=== PATIENT | female | born 1975 | race Caucasian/White ===

== ENCOUNTER → 2023-09-10 | Outpatient (CLI) | payer BC ==
--- NOTE | 2023-09-10 16:45 | P.SLEEP ---
History of Present Illness DATE: 09/10/2023 CONSULTATION/NEW PATIENT EVALUATION HISTORY OF PRESENT ILLNESS/SLEEP-WAKE EVALUATION: 48-year-old lady had been evaluated in the sleep center for possible obstructive sleep apnea hypopnea syndrome. Patient is to. Patient has a history of sleep apnea diagnosed 3 years ago in another institution. Patient hadn't diagnostic sleep study in the office and then 9 treatment test which was done 2 times. Patient was treated without discernible ventilator. Then patient lost weight and repeated home sleep apnea test was negative and she was recommended to stop using Pap therapy. Then patient increased to wait again, again developed symptoms of problem sleeping during the night. Patient restarted to use sure how to several ventilator, but does not feel refreshed in the morning after using her equipment. I checked out to several ventilator. Expiratory pressure 5-15, pressure support 0-20 average pressure 14.7, expiratory pressure 12.6. Apnea- hypopnea index 0.4. SLEEP SCHEDULE: Usually sleep schedule from 10 PM to 6 AM on weekdays and until 911 AM on weekend. FALLING ASLEEP: No problems with falling asleep. DURING SLEEP: Patient sleeps on the side position with loud snoring and awakenings from sleep up to 3 times with one episode of nocturia. No history of hypnogogical hallucinations, sleep paralysis, or cataplexy. DURING THE DAY/WAKE STATE: In the morning patient wake up tired, has difficulties to pay attention, falling asleep during the day, has problems with memory, concentration and depression and anxiety. [place] sleepiness scale is significantly increased to 14. Patient takes 1 nap sometimes for many hours. PAST MEDICAL HISTORY: Hyperlipidemia, anxiety, depression none. PAST SURGICAL HISTORY: None. MEDICATIONS: Prozac, Wellbutrin. SOCIAL HISTORY: Positive for smoking 10 pack years, quit in 2007, alcohol consumption occasional. FAMILY HISTORY: Hyperlipidemia, snoring, liver problems, anemia. REVIEW OF SYSTEMS: Snoring, multiple awakenings from sleep, sleepiness during the day. No fevers. No double vision. No recent chest pain. No shortness of breath. No abdominal pain. No bleeding episodes. No blood in urine. No seizure episodes. PHYSICAL EXAMINATION: GENERAL: A pleasant patient without any distress. VITAL SIGNS: BP 152/86 , HR 67 , RR 18 , weight 178.4 pounds, height 5 foot 0 inches, body mass index 34.7 . HEENT: GINGER RODRIGUEZ. Evaluation of oropharynx showed tongue protrudes midline, low position of soft palate Mallampati 3. NECK: Supple. No JVD. Thyroid is not palpable. 14 inches in circumference. LUNGS: Clear to percussion and to auscultation. Good air exchange. No wheezing or rhonchi. HEART: S1, S2 regular. No murmurs, gallops or rubs. ABDOMEN: Soft and nontender. Bowel sounds are present. No organomegaly appreciated. EXTREMITIES: No clubbing or cyanosis. CHICKEN BONER: Awake, alert, and oriented x3. Cranial nerves 2 to 7 intact. There is no fasciculation or atrophy noted. No focal deficits observed. ASSESSMENT: 1. Snoring, multiple awakenings from sleep, small oropharyngeal air space, history of obstructive sleep apnea. Obstructive sleep apnea-hypopnea syndrome. 2. Obesity, BMI 34.7. 3. Hyperlipidemia. 4. History of anxiety. 5 history of depression. PLAN: 1. Home sleep apnea test for evaluation of patient's breathing during sleep. 2. We will get results of previous sleep studies 3. Preferable position during sleep on the side. 4. No driving if patient feels any sleepiness. Patient is aware of civil and criminal liability for unsafe driving. 5. Sleep hygiene with regular sleep time for at least 7.5-8 hours. 6. Watching weight. 7. I will see patient for follow-up visit to discuss results of home sleep apnea test and following plan. Thank you very much for referring this patient for consultation. Sincerely, Jorge Luis Aleman MD, PhD, FAASM. Diplomat of [employer], Sleep Medicine Board by [employer] Developmental Services Worker of [facility] - Sleep Note Sleep Note: Temperature: Pulse Rate: Respiratory Rate: Blood Pressure: SpO2: Height: Weight: BMI: Neck Circumference:
== END ==
LOC: 3 N SLEEP 15:20
PROVIDERS: ATTEND Internal Medicine
DX: G47.33 Obstructive sleep apnea (adult) (pediatric) (principal); E66.9 Obesity, unspecified; E78.5 Hyperlipidemia, unspecified; F41.9 Anxiety disorder, unspecified; F32.A Depression, unspecified; Z68.34 Body mass index [BMI] 34.0-34.9, adult
CPT/HCPCS: 99211

== ENCOUNTER → 2023-09-28 | Outpatient (CLI) | payer BC ==
--- NOTE | 2023-09-30 19:12 | P.PCN ---
Description of Procedure: CLINICAL: A home sleep apnea test has been done for confirmation of possible obstructive sleep apnea-hypopnea syndrome. DESCRIPTION OF PROCEDURE: RESULTS: Recording time was 12 hours 00 minutes. Evaluation time was 7 hours 36 minutes. Evaluation time is sufficient for making conclusion about results of the test. Raw data of sleep recording has been reviewed and is adequate. Respiratory channel showed 15 apneas and 114 hypopneas. Apnea-hypopnea index was 16.9 per hour. Pulse rate in the range between minimum 51, maximum 106, average 60 by computer calculation. Lowest desaturation was 73%. IMPRESSION: 1. Moderate Obstructive Sleep Apnea Hypopnea Syndrome. Please see other impressions from consultation. PLAN: 1. The patient will be started on auto-PAP treatmentfor correction of respiratory abnormallities during sleep. 2. I will see patient for follow up visit to discuss results of the test, evaluate clinical response on treatment with PAP therapy and make any necessary adjustments related to mask fitting, pressure, and humidification. 3. Watching weight. 4. Sleep hygiene with regular time in bed for at least 8 hours. 5. No driving if feeling any sleepiness. Thank you very much for allowing me to participate in the management of your patient. Sincerely, Jorge Luis Aleman MD, PhD, FAASM Diplomat of [employer] Sleep Medicine Board of [employer] Loft Worker [employer] [facility] [place]
== END ==
LOC: 3 N SLEEP 13:03
PROVIDERS: ATTEND Internal Medicine
DX: G47.33 Obstructive sleep apnea (adult) (pediatric) (principal)

== ENCOUNTER → 2023-10-29 | Outpatient (CLI) | payer BC ==
--- NOTE | 2023-10-29 15:59 | P.PN ---
Subjective DATE: 10/29/2023 FOLLOW UP VISIT. Patient with obstructive sleep apnea hypopnea syndrome return to sleep center for follow-up visit. Information from previous visit have been reviewed. Patient is using PAP equipment every night for the whole night, getting PAP supplies in time. The patient does not have significant problems with the mask, PAP unit and humidification. [place] sleepiness scale is 8. At the home sleep apnea test and test showed moderate obstructive sleep apnea hypopnea syndrome with apnea- hypopnea index 16.9 times per hour. I checked information from ASV unit. ASV unit pressure 5-15 areas of pressure support 0-20 cm of water cm H2O. Usage is 90 % for more then 4 hours, average 7.4 hours per night. Leak is in perfect range 1 l/m. Apnea Hypopnea Index is 0.3, which is normal. MEDICATIONS:1. Prozac 2. Wellbutrin During physical exam: GENERAL: A pleasant patient without any distress. VITAL SIGNS: BP 133/85, HR 75, RR 13 , weight 181.0, temperature 97.8, oxygen saturation at room air 99% . HEENT: PERRLA, EOMI.low position of soft palate, Mallapati 3 . NECK: Supple. No JVD. LUNGS: Clear to percussion and to auscultation. Good air exchange. No wheezing or rhonchi. HEART: S1, S2 regular. ABDOMEN: Soft and nontender.[] EXTREMITIES: No clubbing or cyanosis. CEMENT CAR DUMPER: Awake, alert, and oriented x3. No focal deficit. Impressions: 1. Obstructive and history of central sleep apnea-hypopnea syndrome. Patient demonstrated great compliance with treatment, benefiting from treatment. 2. Obesity. 3. Hyperlipidemia. 4. History of anxiety. 5. History of depression. Plan: 1. Continue using ASV every night for the whole night. 2. To recheck ejection fraction. 3. PAP unit should stay lower then position of the head. 4. Advised patient to remove all remaining water from humidifier canister daily and make it dry after each usage. Refill canister with fresh distilled water before each usage. 5. Sleep hygiene with regular time in bed for at least 8 hours. 6. Precautions related to driving. No driving if feel any sleepiness. 7. I will maintain prescription for PAP supplies including mask, tube, filters. 8. Follow up visit in 6 months or earlier if patient has any problems. 9. Watching and losing weight. Thank you very much for allowing me to participate in the management of your patient. Jorge Luis Aleman MD, PhD, FAASM. Diplomat of [place] [employer], Sleep Medicine Board by [place] [employer] Senior Developer of [facility] [place]
== END ==
LOC: 3 N SLEEP 15:20
PROVIDERS: ATTEND Internal Medicine
DX: G47.33 Obstructive sleep apnea (adult) (pediatric) (principal); E66.9 Obesity, unspecified; E78.5 Hyperlipidemia, unspecified; F41.9 Anxiety disorder, unspecified; F32.A Depression, unspecified; Z99.89 Dependence on other enabling machines and devices
CPT/HCPCS: 99212